=== PATIENT | female | born 1995 | race Caucasian/White ===

== ENCOUNTER 2019-05-22 11:22 | Day surgery (SDC) | payer MEDICAID ==
[2019-05-20 15:09] LABS: HCG,QUAL RESULT NEGATIVE (NEGATIVE)
[~2019-05-22] VITALS: Ht 147.3 cm; Wt 105.7 kg
[2019-05-22] MEDS ORDERED: SEVOFLURANE 15 MIN GAS INH ONE (11:25)
[2019-05-22] MEDS ORDERED: NS IRRIG SOLN 1000 ML IR ONE (11:25)
[2019-05-22] MEDS ORDERED: PROPOFOL 200MG/ 20ML VIAL (DIPRIVAN) IV ONE (11:25)
[2019-05-22] MEDS ORDERED: WATER FOR IRRIGATION,STERILE 1,000 ML IRRIG.SOLN IR ONE (11:25)
[2019-05-22] MEDS ORDERED: ONDANSETRON HCL 4 MG/2 ML VIAL IVP ONE (11:25)
[2019-05-22] MEDS ORDERED: LIDOCAINE/EPI MPF 1%1:200000 30 ML VIAL INJ ONE (11:25)
[2019-05-22] MEDS ORDERED: EPINEPHrine 1 MG/ML AMP INFIL ONE (11:25)
[2019-05-22] MEDS ORDERED: OXYMETAZOLINE HCL 0.05% NASAL SPRAY NS ONE (11:25)
[2019-05-22] MEDS ORDERED: LR 1,000 ML IV.SOLN IV ONE (11:25)
[2019-05-22] MEDS ORDERED: MIDAZOLAM HCL 5 MG/5 ML VIAL IVP ONE (11:25)
[2019-05-22] MEDS ORDERED: fentaNYL CITRATE/PF 100 MCG/2 ML AMP IVP ONE (11:25)
[2019-05-22] MEDS ORDERED: ROCURONIUM BROMIDE 10 MG/ML (ZEMURON) IV ONE (11:25)
[2019-05-22] MEDS ORDERED: DEXAMETHASONE SOD PHOSPHATE 4 MG/ML VIAL IVP ONE (11:25)
[2019-05-22] MEDS ORDERED: ONDANSETRON HCL 4 MG/2 ML VIAL IVP PRN (12:30)
[2019-05-22] MEDS ORDERED: fentaNYL CITRATE/PF 100 MCG/2 ML AMP IVP PRN ×2 (12:30)
[2019-05-22] MEDS ORDERED: fentaNYL CITRATE/PF 100 MCG/2 ML AMP ONE (15:37)
[2019-05-22 16:46] VITALS: BP_SYST 122
== END 2019-05-22 17:25 | disposition home or self-care (01) ==
LOC: SDS 11:22 → SMU 11:22 → SDS 17:25
PROVIDERS: ATTEND Otolaryngology
DX: J34.89 Other specified disorders of nose and nasal sinuses (principal); H65.03 Acute serous otitis media, bilateral; J35.2 Hypertrophy of adenoids; D38.5 Neoplasm of uncertain behavior of other respiratory organs; J34.2 Deviated nasal septum; J45.20 Mild intermittent asthma, uncomplicated; Z82.49 Family history of ischemic heart disease and other diseases of the circulatory system
CPT/HCPCS: 30140; 30520; 31254; 31256; 31276; 31296; 42831; 69436; 84703; 88305; 88311; C1726; J0171; J1100; J2250; J2405; J2704; J3010; J7120; L8699; 88304